=== PATIENT | male | born 1990 | race Caucasian/White ===

== ENCOUNTER 2019-03-25 13:40 | Emergency (ER) | payer SELFPAY ==
[2019-03-25] MEDS ORDERED: ACETAMINOPHEN 325 MG TAB PO ONE (14:07)
--- NOTE | 2019-03-25 14:16 | Emergency Department Record ---
History of Present Illness - General Chief complaint: Head Injury Stated complaint: HEAD INJURY -WORK Time Seen by Provider: 03/25/19 13:45 Source: Patient Mode of Arrival: Ambulatory Limitations: No limitations - History of Present Illness Initial comments: The patient is here due to being hit in the back of the head by a heavy metal object at work. He was dazed and saw "stars' briefly and has had a SADLER since. The patient did suffer a laceration to the back of the head. He did not fall after and denies any neck pain, nausea, vomiting, or visual changes. The patient is not on any blood thinners. His Td is UTD. MD Complaint: Head injury Onset/Timin -: Minutes(s) Mechanism of Injury: Machine or tool related injury, Work related injury Location: Occipital Loss of Consciousness: No Previous Trauma to this Area: No Place: Work Severity scale (1-10): 6 Consistency: Constant Provoking factors: None known Other Injuries: Laceration Associated Symptoms: Denies other symptoms - Related Data Home Medications Medication Instructions Recorded Confirmed Last Taken No Home Med [NO HOME MEDS] 03/25/19 03/25/19 Unknown Allergies/Adverse reactions: Allergies Allergy/AdvReac Type Severity Reaction Status Date / Time Penicillins Allergy Mild hives Verified 03/25/19 13:46 Travel Screening - Travel/Exposure Within Last 30 Days Have you traveled within the last 30 days?: No - Travel/Exposure Within Last Year Have you traveled outside the [place] in the last year?: No - Additonal Travel Details Have you been exposed to anyone with a communicable illness?: No - Travel Symptoms Symptom Screening: None Review of Systems Constitutional: Denies: Chills, Fever Eyes: Denies: Eye discharge ENT: Denies: Congestion Respiratory: Denies: Cough, Dyspnea Past Medical History - SOCIAL HISTORY Smoking Status: Current every day smoker Alcohol Use: None Drug Use: None - RESPIRATORY Hx Respiratory Disorders: No - CARDIOVASCULAR Hx Cardio Disorders: No - NEURO Hx Neuro Disorders: No - GI Hx GI Disorders: No - Hx Genitourinary Disorders: No - ENDOCRINE Hx Endocrine Disorders: No - MUSCULOSKELETAL Hx Musculoskeletal Disorders: No - PSYCH Hx Psych Problems: No - HEMATOLOGY/ONCOLOGY Hx Hematology/Oncology Disorders: No Family Medical History Any Significant Family History?: No Physical Exam - General General Appearance: Alert, Oriented x3, Cooperative, No acute distress - Head Head exam: Normocephalic (There is a 1 cm superficial laceration to the occiput. There is minimal surrounding bony tenderness.). negative: Atraumatic Head exam detail: negative: Landeros's sign Image of Face/Head: 1 - Area of 1 cm lac. - Eye Eye exam: Normal appearance, PERRL, EOMI - ENT Throat exam: Normal inspection. negative: Tonsillar erythema, Tonsillar exudate - Neck Neck exam: Normal inspection, Full ROM. negative: Tenderness - Respiratory Respiratory exam: Normal lung sounds bilaterally. negative: Respiratory distress - Cardiovascular Cardiovascular Exam: Regular rate, Normal rhythm, Normal heart sounds - Neurological Neurological exam: Alert, Normal gait, Oriented X3. negative: Abnormal gait, Altered, Motor sensory deficit Course Vital Signs 03/25/19 13:45 Temperature 98.1 F Pulse Rate [ 105 H Pulse Ox Probe] Respiratory 18 Rate Blood Pressure 156/98 [Left Arm] Pulse Ox 97 - Reevaluation(s) Reevaluation #1: Procedure note: The Lac was anest. with Lido 1% with Epi and then cleansed with betadine and sterile saline. The lac was superficial and not thru the dermis. It was closed with 2 rozina with no complications. 03/25/19 14:15 Reevaluation #2: The patient is doing very well at this time. He states his SADLER is improving and he denies any other issues. I did discuss the neg head CT with him and the need to return in 10 days for staple removal. 03/25/19 15:38 Medical Decision Making - Data Complexity MDM Data: X-Ray Ordered and/or Reviewed - Radiology Data Radiology results: Report reviewed (Head CT: Neg verbally from Rad.) Disposition Disposition: Discharge Clinical Impression: Laceration of scalp Qualifiers: Encounter type: initial encounter Qualified Code(s): S01.01XA - Laceration without foreign body of scalp, initial encounter Disposition: Home, Self-Care Condition: (2) Stable Instructions: Head Injury (ED) Additional Instructions: Please use Tylenol or Motrin for pain and keep the scalp dry for 2 days. After 2 days you can get it wet but no soaking or swimming. Have he rozina removed in 10 days. Return to the ER for any worsening SADLER, vomiting, confusion, or balance issues. Forms: Patient Portal Access Time of Disposition: 15:41 Quality - Quality Measures Quality Measures: N/A - Blood Pressure Screening View Details: Yes Does Patient Have Any of the Following: No Blood Pressure Classification: Hypertensive Reading Systolic Measurement: 156 Diastolic Measurement: 98 Screening for High Blood Pressure: < First Hypertensive BP, F/U Documented > [G8950] First Hypertensive Follow-up Interventions: Referral to alternative/primary care provider.
--- NOTE | 2019-03-26 09:05 | CT SCAN REPORT ---
EXAM: CT OF THE HEAD WITHOUT IV CONTRAST HISTORY: PRESS FELL FROM SHELF STRIKING BACK OF HEAD RESULTING IN PAIN AND A SMALL LACERATION. NO LOSS OF CONSCIOUSNESS. TECHNIQUE: CT of the head was conducted without IV contrast with reconstruction of coronal and sagittal planes. Bone algorithms were provided. Comparison: None. FINDINGS: No acute intracranial hemorrhage, midline shift, or mass effect is demonstrated. Card white matter interface is preserved. No evidence of hydrocephalus or suspicious extraaxial fluid collection. Two small rozina are present involving the left occipital region. No acute displaced fracture or underlying hematoma identified. Potential retention cyst involving the inferior right maxillary sinus identified. The remainder of the paranasal sinuses and mastoid air cells are well aerated. No acute displaced fracture evident. Large right septal spur is present. The adenoids are prominent. IMPRESSION: NO ACUTE INTRACRANIAL HEMORRHAGE, MIDLINE SHIFT, OR MASS EFFECT. NO ACUTE DISPLACED FRACTURE. JOB NUMBER: [id number] MTDD
== END 2019-03-25 15:59 | disposition home or self-care (01) ==
LOC: ER 13:40
DX: S01.01XA Laceration without foreign body of scalp, initial encounter (principal); S09.90XA Unspecified injury of head, initial encounter; R51 Headache; W01.10XA Fall on same level from slipping, tripping and stumbling with subsequent striking against unspecified object, initial encounter; Y92.63 Factory as the place of occurrence of the external cause; Y99.0 Civilian activity done for income or pay; F17.210 Nicotine dependence, cigarettes, uncomplicated
CPT/HCPCS: 12001; 70450; 99284

== ENCOUNTER 2019-04-05 11:03 | Emergency (ER) | payer SELFPAY ==
--- NOTE | 2019-04-05 11:14 | Emergency Department Record ---
History of Present Illness - General Chief Complaint: Suture removal Stated Complaint: SUTURE REMOVAL Time Seen by Provider: 04/05/19 11:11 Source: Patient Mode of arrival: Ambulatory Limitations: No limitations - History of Present Illness Initial Comments: Rozina x 2 to scalp placed here 11 days ago. No issues. No pain or drainage. Onset/Timin -: Days(s) Initial Visit For: Laceration Returns Today for: Staple/stitch removal Symptoms Since Prior Visit: No new symptoms Associated Symptoms: None - Related Data Allergies Allergy/AdvReac Type Severity Reaction Status Date / Time Penicillins Allergy Mild hives Verified 04/05/19 11:11 Travel Screening - Travel/Exposure Within Last 30 Days Have you traveled within the last 30 days?: No Review of Systems Constitutional: Denies: Chills, Fever Eyes: Denies: Eye pain Past Medical History - SOCIAL HISTORY Smoking Status: Current every day smoker - RESPIRATORY Hx Respiratory Disorders: No - CARDIOVASCULAR Hx Cardio Disorders: No - NEURO Hx Neuro Disorders: No - GI Hx GI Disorders: No - Hx Genitourinary Disorders: No - ENDOCRINE Hx Endocrine Disorders: No - MUSCULOSKELETAL Hx Musculoskeletal Disorders: No - PSYCH Hx Psych Problems: No - HEMATOLOGY/ONCOLOGY Hx Hematology/Oncology Disorders: No Family Medical History Any Significant Family History?: No Physical Exam - General General Appearance: Alert, Oriented x3, Cooperative, No acute distress - Head Head exam: Atraumatic (healed lac to scalp without erythema or drainage. Rozina x [address] ) - Eye Eye exam: PERRL, EOMI - ENT ENT exam: Mucous membranes moist - Neck Neck exam: Normal inspection, Full ROM. negative: Tenderness - Neurological Neurological exam: Alert, Normal gait, Oriented X3 - Psychiatric Psychiatric exam: Normal affect, Normal mood - Skin Skin exam: Normal color. negative: Rash Course Vital Signs 04/05/19 11:09 Temperature 99.0 F Pulse Rate 103 H Respiratory 18 Rate Blood Pressure 132/86 Pulse Ox 96 - Reevaluation(s) Reevaluation #1: 04/05/19 11:13 rozina removed. Home Disposition Disposition: Discharge Clinical Impression: Removal of staple Condition: (1) Good Instructions: Stitches Removal (ED) Time of Disposition: 11:13 Quality - Quality Measures Quality Measures: N/A - Blood Pressure Screening Does Patient Have Any of the Following: No Blood Pressure Classification: Pre-Hypertensive BP Reading Systolic Measurement: 132 Diastolic Measurement: 86 Screening for High Blood Pressure: < Pre-Hypertensive BP, F/U Documented > [G8950] Pre-Hypertensive Follow-up Interventions: Follow-up with rescreen every year.
== END 2019-04-05 11:30 | disposition home or self-care (01) ==
LOC: ER 11:03
DX: Z48.02 Encounter for removal of sutures (principal)